=== PATIENT | male | born 1965 | race Caucasian/White ===

== ENCOUNTER 2018-12-23 20:54 | Inpatient (IN) ==
[2018-12-23] MEDS ORDERED: MORPHINE IV ONE (21:55)
[2018-12-23] MEDS ORDERED: NS 1,000 ML IV ONE (21:55)
[2018-12-23] MEDS ORDERED: ZOFRAN IV ONE (21:55)
--- NOTE | 2018-12-23 22:03 | PROVIDER DOCUMENTATION ---
HPI-General Adult - General Chief Complaint: Extremity Pain Stated Complaint: N/V, FEVER Time Seen by Provider: 12/23/18 21:50 Source: patient Allergies/Adverse Reactions: Patient Allergies Allergy/AdvReac Type Severity Reaction Status Date / Time No Known Allergies Allergy Verified 07/29/17 01:21 Home Medications: Home Medication List Medication Instructions Recorded Confirmed Last Taken Type Insulin Humulin 70/30 [Humulin 18 unit SQ BID 03/28/17 12/24/18 03/28/17 11:00 History 70/30] Promethazine [Phenergan] 1 - 2 tab PO Q6H PRN PRN #18 tab 07/29/17 12/24/18 Unknown Rx Amlodipine Besylate 10 mg PO DAILY 12/24/18 12/24/18 Unknown History - History of Present Illness -Gen Adult Nature of Presenting Problems: 53 YOM WITH PMH OF DM PRESENTS WITH L GREAT TOE SWELLING, PAIN, DRAINAGE, CHILLS, FEVER, NIGHT SWEATS. HE HAS HAD OSTEOMYELITIS PREVIOUSLY IN THE OTHER FOOT. Location of Pain/Injury: reports: feet (L) Pain Radiation: reports: no radiation Quality of Pain: reports: aching Severity: reports: severe Onset/Duration: reports: 1 week ago Timing: reports: still present Context/Activities at Onset: reports: none Modifying Factors: improves with: nothing Associated Symptoms: reports: fever/chills, muscle aches, nausea, vomiting, weakness Similar Symptoms Previously?: Yes Recently seen or treated by another doctor?: No Review of Systems - Adult - REVIEW OF SYSTEMS - ADULT Constitutional: reports: see HPI, chills, fever, night sweats Eyes: reports: no symptoms reported. denies: see HPI, discharge, dry eyes, decreased vision, blurred vision, double vision, eye pain, redness, other Ears, Nose, Mouth & Throat: reports: no symptoms reported. denies: see HPI, ear discharge, ear pain, hearing loss, tinnitus, epistaxis, sinus problem, nose pain, loose teeth, mouth/dental pain, mouth swelling, hoarseness, throat pain, throat swelling, other Cardiovascular: reports: no symptoms reported. denies: see HPI, chest pain, edema, heart murmur, irregular heart rate, orthopnea, palpitations, poor circulation, PND, syncope, other Respiratory: reports: no symptoms reported. denies: see HPI, chronic cough, cough, dyspnea on exertion, excessive sputum production, hemoptysis, pleurisy, shortness of breath, wheezing, other Gastrointestinal: reports: no symptoms reported. denies: see HPI, abdominal pain, hematemesis, constipation, diarrhea, difficulty swallowing, frequent heartburn, nausea, poor appetite, rectal bleeding, vomiting, other Genitourinary: reports: no symptoms reported. denies: see HPI, dysuria, discharge, frequency, flank pain, frequent UTI's, hematuria, hesitency, incontinence, urinary retention, urgency, other Musculoskeletal: reports: see HPI. denies: no symptoms reported, bone pain, back pain, frequent leg cramps, joint pain, joint swelling, muscle aches, muscle weakness, neck pain, other Integumentary: reports: see HPI, skin sores/ulcer. denies: no symptoms reporte d, hives, hair loss, itching, mole changes, nail changes, rash, skin thickening, other Neurological: reports: no symptoms reported. denies: see HPI, ataxia, dizziness/vertigo, headache/migraines, loss of balance, numbness, paresthesia, seizure, slurred speech, syncope, tremors, other Psychiatric: reports: no symptoms reported. denies: see HPI, anxiety, anti- depressant use, alcohol/drug dependence, depression, emotional problems, insomnia, panic attacks, suicidal thoughts, other Endocrine: reports: no symptoms reported. denies: see HPI, change in skin pigment, excessive sweating, goiter, cold intolerance, heat intolerance, increased hunger, increased thirst, polyuria, other Hematologic/Lymphatic: reports: no symptoms reported. denies: see HPI, blood clots, easy bruising, low blood count, lymphedema, prolonged bleeding, swollen lymph nodes, transfusions, other Allergic/Immunologic: reports: no symptoms reported. denies: see HPI, allergic reactions, allergic rhinitis, asthma, eczema, food allergy, frequent infections, hay fever, hives, positive PPD, urticaria, other Past History - Adult - PAST MEDICAL HISTORY-ADULT Review of Records: reports: Nursing Assessment Review, Social history reviewed & non-contributory. Major Childhood Illnesses: reports: denies history Cardiovascular: reports: denies history Respiratory: reports: denies history Gastrointestinal: reports: denies history Obstetrical/Gynecological: reports: denies history Genitourinary: reports: denies history Musculoskeletal: reports: denies history Neurological: reports: denies history Psychiatric: reports: denies history Endocrine/Immune: reports: Diabetes Other Conditions: reports: denies history - PRIOR SURGERIES/PROCEDURES Surgical/Procedure History: reports: appendectomy, cholecystectomy - IMMUNIZATION STATUS Childhood Immunizations: See Nurse Assessment Flu Vaccine: See Nurse Assessment - FAMILY HISTORY Family History: reviewed, not pertinent Physical Exam-General - PHYSICAL EXAM-ADULT Initial Vital Signs Reviewed: Yes - CONSTITUTIONAL General Appearance: appears well, alert, no apparent distress - EYES Eyes: PERRL/EOMI, pink conjunctivae - HEAD, EARS, NOSE, MOUTH & THROAT HENMT: normocephalic/atraumatic, moist mucous membranes, normal ENT inspection - NECK Neck: non-tender, full range of motion, supple - RESPIRATORY Respiratory: chest non-tender, lungs clear, normal breath sounds - CARDIOVASCULAR Cardiovascular: normal peripheral pulses, regular rate, rhythm, no edema, no gallop, no JVD, no murmur - GASTROINTESTINAL (ABDOMEN) Abdominal Exam: normal bowel sounds, non tender, soft - LYMPHATIC Lymphatic: no adenopathy - MUSCULOSKELETAL Back Exam: normal inspection, no CVA tenderness, no vertebral tenderness Extremity: swelling (L GREAT TOE), tenderness (L GREAT TOE) - SKIN Integumentary: swelling (L TOE), tenderness (L TOE), warm (L TOE) - NEUROLOGIC Neurologic: grossly normal - PSYCHIATRIC Psych/Mental Status: normal mood/affect, oriented x 3 Progress - PLAN OF CARE/RESULTS Progress/Plan/Lab Results: Vital Signs - 8 hr 12/23/18 20:58 Temperature 99.0 F Pulse Rate 108 H Respiratory Rate 18 Blood Pressure 147/75 O2 Sat by Pulse Oximetry 99 Orders Category Date Time Status Saline Loc NOW Care 12/23/18 21:54 Ordered FOOT COMPLETE LEFT [RAD] Stat Exams 12/23/18 21:57 Ordered BLOOD CULTURE [BLDCUL] Stat Lab 12/23/18 21:55 Uncollected COMPREHENSIVE METABOLIC PANEL [CHEM] Stat Lab 12/23/18 21:55 Uncollected LACTATE, PLASMA [CHEM] Stat Lab 12/23/18 21:55 Uncollected PROTIME WITH INR [COAG] Stat Lab 12/23/18 21:55 Uncollected PTT [COAG] Stat Lab 12/23/18 21:55 Uncollected WOUND CULTURE INC GRAM STAIN [RM] Stat Lab 12/23/18 21:55 Uncollected Morphine Med 12/23/18 21:55 Once 4 mg IV NOW ONE Ns 1000 ml IV Bolus X1 Med 12/23/18 21:55 Ordered 0.9% Sodium Chloride Inj [Ns] 1,000 ml IV 999 mls/hr Ondansetron [Zofran] Med 12/23/18 21:55 Once 4 mg IV NOW ONE Result Diagrams: 12/24/18 05:39 12/24/18 05:39 - XRAY 1 XRAY: Left XRAY Study: Foot Impression: Abnormal Departure - Departure Date of Disposition Decision: 12/24/18 Time of Disposition Decision: 00:43 DIAGNOSIS: Cellulitis, Sepsis Disposition: ADMITTED INPATIENT 09 Certified Medical Emergency: Emergent Condition: Stable - Critical Care Note This patient required my direct & personal management of CC.: No Attestation - Physician/ NUPUR Attestation Patient care was provided by Advanced Practice Provider:: Yes Advanced Practice Provider:: Merlene Lucas Advanced Practice Provider documentation review:: The Mid-level provider documentation, treatment plan and medical decision making was reviewed by the physician who agrees with all treatment and medical decision making by the MLP. The physician spent face to face time with patient:: No Advanced Practice Provider documentation review:: Supervising physician onsite a nd consulted in the evaluation and care of this patient. The physician did not have a face to face encounter with the patient.
[2018-12-23 23:01] LABS: ALBUMIN 4.1 g/dL (3.5-5.0); POTASSIUM 4.3 mmol/L (3.5-5.1); TOTAL BILIRUBIN 0.9 mg/dL (0.20-1.00)
[2018-12-23] MEDS ORDERED: VANCOMYCIN 1 GM/NS 1 GM/250 ML IVPB IV ONE (23:17)
[2018-12-23] MEDS ORDERED: ZOSYN 3.375 GM in NS 50 ML IV ONE (23:17)
[2018-12-23 23:40] LABS: INR 0.95; PROTIME 13.2 Seconds (11.0-16.0)
[2018-12-24 00:05] LABS: BASO# 0.03 X1000 (0.0-0.2); BASO% 0.2 % (0.0-0.8); EOS# 0.14 X1000 (0.0-0.7); EOS% 1.2 % (0.0-10.0); HEMATOCRIT 34.2 % (42.0-52.0); HEMOGLOBIN 11.7 g/dL (14.0-18.0); IMM GRAN# 0.02 X1000 (0.0-0.04); IMM GRAN% 0.2 % (0.0-0.5); LYMPH# 1.08 X1000 (1.2-3.4); LYMPH% 8.9 % (20.5-51.1); MCH 26.8 PG (27-31); MCHC 34.2 g/dL (33-37); MCV 78.4 FL (81-99); MONO# 0.85 X1000 (0.11-0.59); MPV 11.3 FL (7.4-10.4); NEUT# 9.97 X1000 (1.4-6.5); NEUT% 82.5 % (42.2-75.2); PLT 399 X1000 (130-400); RBC 4.36 XMIL (4.7-6.1); RDW 12.3 % (11.5-14.5); WBC 12.09 X1000 (4.8-10.8)
[2018-12-24] MEDS ORDERED: NS 1,000 ML IV ONE ×2 (00:44→00:45)
[2018-12-24] MEDS ORDERED: VANCOMYCIN IV PER PHARMACY MISC SCH (01:34)
[2018-12-24] MEDS: MORPHINE IV PRN ×3 (01:44→17:24)
[2018-12-24] MEDS: ZOFRAN IV PRN ×3 (01:45→17:25)
[2018-12-24] MEDS ORDERED: VANCOMYCIN 500 MG/NS 500 MG/100 ML IVPB IV ONE (03:00)
[2018-12-24 06:09] LABS: BASO# 0.03 X1000 (0.0-0.2); BASO% 0.3 % (0.0-0.8); EOS# 0.06 X1000 (0.0-0.7); EOS% 0.5 % (0.0-10.0); HEMATOCRIT 30.2 % (42.0-52.0); HEMOGLOBIN 9.7 g/dL (14.0-18.0); IMM GRAN# 0.02 X1000 (0.0-0.04); IMM GRAN% 0.2 % (0.0-0.5); LYMPH# 1.63 X1000 (1.2-3.4); LYMPH% 13.7 % (20.5-51.1); MCH 25.7 PG (27-31); MCHC 32.1 g/dL (33-37); MCV 80.1 FL (81-99); MONO# 1.38 X1000 (0.11-0.59); MONO% 11.6 % (1.7-9.3); MPV 10.5 FL (7.4-10.4); NEUT# 8.76 X1000 (1.4-6.5); NEUT% 73.7 % (42.2-75.2); PLT 357 X1000 (130-400); RBC 3.77 XMIL (4.7-6.1); RDW 12.4 % (11.5-14.5); WBC 11.88 X1000 (4.8-10.8)
[2018-12-24] MEDS: ZOSYN 3.375 GM in NS 50 ML IV SCH ×5 (06:09→23:20)
[2018-12-24 06:44] LABS: ALBUMIN 3.2 g/dL (3.5-5.0); CALCIUM 8.1 mg/dL (8.8-10.2); CREATININE 1.7 mg/dL (0.7-1.2); TOTAL BILIRUBIN 0.5 mg/dL (0.20-1.00); TOTAL PROTEIN 6.6 g/dL (6.3-8.3)
--- NOTE | 2018-12-24 08:12 | Diag Imaging Result Doc PS360 ---
EXAM: FOOT COMPLETE LEFT - 12/23/2018 HISTORY: swelling, redness, tenderness, fever TECHNIQUE: Left foot three views COMPARISON: None. FINDINGS: There is soft tissue swelling at the great toe. There are no erosive or destructive changes identified at the great toe or first metatarsal. There are erosive changes at the terminal torrey of the distal phalanges of the second and third toes, which are nonspecific age. There is mild chronic appearing deformity of the distal head of the fifth metatarsal. There is no acute fracture or dislocation identified. There is no opaque foreign body identified. IMPRESSION: Soft tissue at swelling great toe. No visible acute bony abnormality at the great toe or first metatarsal. Please note that early osteomyelitis can be radiographically occult. Erosive changes at the terminal torrey of the distal phalanges of second and third toes, which are of nonspecific age. Correlation with clinical history and evaluation is recommended. Mild chronic appearing deformity of distal head of fifth metatarsal. Electronically signed by Suman Clarke 12/24/2018 8:10 AM
[2018-12-24 09:33] LABS: HEMOGLOBIN A1C 10.2 % (4.8-6.0)
[2018-12-24] MEDS ORDERED: TYLENOL PO PRN (11:14)
[2018-12-24] MEDS: NORVASC PO SCH (11:15)
[2018-12-24] MEDS: HUMULIN R (PARKWAY) SUBQ SCH ×3 (11:17→22:23)
--- NOTE | 2018-12-24 12:18 | HISTORY AND PHYSICAL ---
PRIMARY CARE PHYSICIAN: Dr. Rasmussen. CHIEF COMPLAINT: Left foot pain and edema. HISTORY OF PRESENT ILLNESS: Mr. Vegas is a 53-year-old male with a past medical history of diabetes, Sunflower syndrome, kidney stones, hypertension and cellulitis. The patient states that about a week ago he noticed a sore to the bottom of his left great toe, the patient has been treating this with topical antibiotic cream. The patient states he thought that it was getting better, but it suddenly started becoming more edematous. He started noticing some erythema and some drainage that looked purulent, all this started over the past couple days. The patient has also been having some fever, chills and night sweats. The patient has been working out of town in [place]. 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 Upon inspection of the toe, there is a lot of erythema and edema to the left great toe, it is noted to have some discoloration noted at the skin that appears yellow. There is a open wound noted to the bottom of the toe region, it does have some purulent drainage coming out of the toe. The patient states he has also been having some nausea and vomiting. The patient did have some vomiting while in the room, there was not much stomach contents in the vomit, but there was some white foam, which appears to be more like dry heaves. The patient denies any blood in his vomit. Denies any chest or shortness of breath. Denies any dysuria or hematuria. Denies any constipation or any blood in the stool. He states he has had a couple episodes of diarrhea, but this has just started. LABORATORY FINDINGS: Show a white blood cell count of 12.09, hemoglobin of 11.7, hematocrit 34.2. Sodium is 134, chloride is 93, BUN is 25, creatinine is 2, estimated GFR is 35. Glucose is 228. Plasma lactate is 3.2. X-ray of foot shows soft tissue swelling at the great toe. 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 FAMILY HISTORY: Father from a heart attack, he was also an alcoholic. Mother who was a heavy smoker of COPD. SOCIAL HISTORY: The patient is . He lives in [place]. 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 He denies any smoking, alcohol or illicit drug abuse. ALLERGIES: No known drug allergies. MEDICATIONS: 1. Insulin 70/30, 18 units subcu b.i.d. 2. Phenergan 25 mg 1 to 2 tablets p.o. q.6 hours p.r.n. nausea and vomiting. 3. Amlodipine besylate 10 mg p.o. daily. LABS AND DIAGNOSTICS: White blood cell count is 12.09, red blood cell count is 4.36, hemoglobin is 11.7, hematocrit is 34.2, MCV is 78.4, MCH 26.8, MCHC is 34.2, RDW is 12.3, platelet count is 399,000. PT is 13.2, INR is 0.95, PTT is 36. Sodium is 134, potassium is 4.3, chloride is 93, carbon dioxide is 26, anion gap is 16, BUN is 25, creatinine is 2. Estimated GFR is 35. Glucose is 228, calcium is 9, total bilirubin is 0.9, AST is 18, ALT is 10, alkaline phosphatase is 95. Plasma lactate is 3.2. X-ray of the left foot shows soft tissue swelling of the great toe. No visible acute bony abnormality at the great toe or 1st metatarsal. REVIEW OF SYSTEMS: A 10 point review of systems has been obtained and all are negative except what is stated above in the HPI. PHYSICAL EXAMINATION: VITAL SIGNS: Temperature 97.4 degrees, pulse rate 67, respiratory rate 18, blood pressure 121/62, O2 saturation is 100% on room air, weight is 166 pounds, height is 5 feet 11 inches. GENERAL: This is a 53-year-old male. He is lying in the hospital bed. He is in no acute distress. He is well nourished and well developed. HEENT: Atraumatic, normocephalic. Pupils are equal, round and reactive to light. Sclerae are anicteric. Mucous membranes are moist. NECK: Supple. No lymphadenopathy. Trachea is midline. No JVD. No thyromegaly. No bruits. CARDIOVASCULAR: Regular rate and rhythm. No murmurs, gallops or rubs appreciated. RESPIRATORY: Lung sounds are clear with equal chest excursion. Respirations are nonlabored with no accessory muscle usage. ABDOMEN: Soft, nontender, nondistended. Bowel sounds are present x4. NEUROLOGIC: Cranial nerves II-XII intact. The patient is awake, alert and oriented, able to follow all commands appropriately. MUSCULOSKELETAL: Full strength noted. No abnormalities of gait. No deformities. EXTREMITIES: There is a large amount of edema and erythema noted to the left great toe. DP and PT pulses are present and palpable. Left foot is very tender to touch. There are no abnormalities noted to the right foot. SKIN: Warm and dry. There is an open wound noted to the posterior surface of the left great toe, it is draining purulent drainage. The left great toe is very edematous and has a large amount of erythema noted to the base. The skin is discolored in appearance, it has a yellowish tint noted. Afebrile at this time. There is no diaphoresis noted at this time. ASSESSMENT AND PLAN: 1. Cellulitis to the left great toe. We have placed this patient on the medical floor. We have started him on IV fluid hydration of normal saline at 100 mL/h. They did recheck a lactate on him, and his lactate did come down to 1.2. They did recheck his white blood cell count this morning, and it has come down to 11.88. We have started him on IV antibiotics of vancomycin and Zosyn. We will provide him with Tylenol as needed for fever, and Zofran as needed for nausea and vomiting. 2. Acute kidney injury, this is possibly related to his infection. The patient only has one kidney noted, he had his left kidney removed. When looking back at the lab values from the past, looks like he had a creatinine of 1.1 a year ago. We are providing him with IV fluid hydration. His creatinine has come down to 1.7. His GFR has increased to 43, a year ago his GFR was 40, this may be his normal range. We are going to repeat labs in the morning. 3. Diabetes. I have restarted his home medications for diabetes, we are going to be checking his fingersticks before meals and at bedtime. His blood sugar this morning was low; however, he did not eat dinner last night. I did a hemoglobin A1c on this patient, his A1c is 10.2. I counseled him on trying to follow his diabetic diet when at home. The patient works out of town and states it is hard to follow this diet while on the road. I talked with him about getting his blood sugar to less than 150 range, and this would help with wound healing. 4. Hypertension. I have restarted his home medications for hypertension. 5. Anemia. I suspect this is anemia of chronic disease. We are going to repeat his labs in the morning. I will add some iron studies on there to check for iron deficiency anemia. We will admit this patient to the medical floor. We have started him on IV fluid hydration. We placed him on IV antibiotics. We are going to provide him with a diabetic diet. We are going to give him his home insulin doses and check his blood sugar before meals and at bedtime. We will also provide him with sliding scale insulin if needed. We will recheck all the labs in the morning, provide him with nausea medicine for his nausea and Tylenol for fever. The patient has not had any fevers in the hospital. We are going to have Wound Care come take a look at his wound on his left great toe. All other treatment pending hospital course and lab data. Dictated by NAVDEEP Hester for Josemanuel Guzman MD cc: MD Dr. Grady Espinal
--- NOTE | 2018-12-24 13:29 | Diag Imaging Result Doc PS360 ---
EXAM: MRI LOW EXTREMITY W/O CON-LEFT - 12/24/2018 HISTORY: L GREAT TOE INFECTION TECHNIQUE: MRI left great toe without contrast. T1-weighted spin-echo images). Images are obtained in multiple injections. No contrast administered per request the referring provider. COMPARISON: 12/23/2018 left foot radiographs FINDINGS: There is relatively generalized subcutaneous edema at the great toe. This is most prominent medially. There is extension of edema into the dorsal subcutaneous tissues of the nearby forefoot. There is some generalized bone marrow edema in the distal phalanx of the great toe. There is mild generalized bone marrow edema in the proximal phalanx of great toe. The bone marrow edema is most conspicuous on the inversion apparent images, and is less conspicuous on the T1-weighted images. When correlated with the recent radiographs, there are no discrete erosions identified. There is a small amount of fluid noted in multiple metatarsal phalangeal joint. IMPRESSION: Some generalized bone marrow edema in the distal phalanx of the great toe. Mild generalized bone marrow edema in the proximal phalanx of the great toe. No discrete erosions. Early osteomyelitis of the great toe, particularly at the distal phalanx, cannot be excluded. Electronically signed by Suman Clarke 12/24/2018 1:27 PM
--- NOTE | 2018-12-24 13:45 | HISTORY AND PHYSICAL ---
ADDENDUM: I saw the patient and discussed his condition in detail with the nurse practitioner, Neda Arevalo. I fully agree with her assessment and plan. The patient is a 53-year-old diabetic gentleman who has left great toe swelling with diabetic ulcer and cellulitis. He does have history of osteomyelitis in the past, although current foot x-rays did not show any obvious osteomyelitis, although there could be occult osteomyelitis present there. We are going to continue with IV vancomycin along with Zosyn and treat his insulin with regular insulin as per sliding scale. We will keep his amlodipine 10 mg daily for his hypertension and provide him supportive care. Further recommendations will be given as per hospital course. cc: Josemanuel Guzman MD
[2018-12-24] MEDS: HUMULIN 70/30 (PARKWAY) SUBQ SCH (17:15)
[2018-12-25] MEDS ORDERED: VANCOMYCIN 1,200 MG in NS 250 ML IV SCH (01:00)
[2018-12-25 06:37] LABS: BASO# 0.05 X1000 (0.0-0.2); BASO% 0.6 % (0.0-0.8); EOS# 0.45 X1000 (0.0-0.7); EOS% 5.4 % (0.0-10.0); HEMATOCRIT 28.6 % (42.0-52.0); HEMOGLOBIN 9.3 g/dL (14.0-18.0); IMM GRAN# 0.01 X1000 (0.0-0.04); IMM GRAN% 0.1 % (0.0-0.5); LYMPH# 0.99 X1000 (1.2-3.4); LYMPH% 11.9 % (20.5-51.1); MCH 26.4 PG (27-31); MCHC 32.5 g/dL (33-37); MCV 81.3 FL (81-99); MONO# 0.67 X1000 (0.11-0.59); MONO% 8.1 % (1.7-9.3); MPV 10.9 FL (7.4-10.4); NEUT# 6.15 X1000 (1.4-6.5); NEUT% 73.9 % (42.2-75.2); PLT 325 X1000 (130-400); RBC 3.52 XMIL (4.7-6.1); RDW 12.5 % (11.5-14.5); WBC 8.32 X1000 (4.8-10.8)
[2018-12-25] MEDS: ZOSYN 3.375 GM in NS 50 ML IV SCH ×3 (06:39→21:57)
[2018-12-25] MEDS: PRILOSEC PO SCH (06:39)
[2018-12-25] MEDS: HUMULIN R (PARKWAY) SUBQ SCH ×4 (06:43→21:58)
[2018-12-25 07:07] LABS: CALCIUM 7.9 mg/dL (8.8-10.2); CREATININE 1.4 mg/dL (0.7-1.2); MAGNESIUM 1.7 mg/dL (1.5-2.7); POTASSIUM 4.7 mmol/L (3.5-5.1)
[2018-12-25 07:27] LABS: FREE T4 1.35 ng/dL (0.93-1.70); TSH 1.46 uIUmL (0.27-4.20)
[2018-12-25] MEDS: HUMULIN 70/30 (PARKWAY) SUBQ SCH ×2 (10:01→17:43)
[2018-12-25] MEDS: NORVASC PO SCH ×2 (10:02→10:03)
--- NOTE | 2018-12-25 12:41 | PROGRESS NOTE ---
DATE: 12/25/2018 SUBJECTIVE: The patient denies having any acute complaints this morning and feels better. OBJECTIVE: Vital Signs: Temperature 98.1 degrees, pulse 66 per minute, respiratory rate 20 per minute, blood pressure 108/59, pulse oximetry 98% on room air. General: The patient is alert and oriented x3. He does not appear to be in any acute distress. Cardiovascular System: First and second heart sounds are audible, without any murmurs or gallops. Respiratory System: Bilateral lung air entry is good without any rales or rhonchi. Gastrointestinal system: The abdomen is benign. Musculoskeletal System: No deformities are present. Left great toe is swollen, with cellulitis and slight ulceration. IMPRESSION: 1. Type 2 diabetes mellitus, with cellulitis of the left great toe. 2. Acute kidney injury. 3. Hypertension. 4. Anemia of chronic disease. PLAN: We will continue with IV antibiotics including vancomycin and Zosyn. Surgical consultation with Dr. Santoyo has been obtained, who has seen this patient and will assist us in taking care of his cellulitis of the great toe. We will also check him for possible osteomyelitis and treat him accordingly. We will continue with IV fluids along with treating his hypertension and diabetes. Currently, he is getting Regular insulin subcutaneously as per protocol. His anemia is stable, and creatinine has improved from 2.0 to 1.4. I believe there could be some chronic kidney disease secondary to diabetes as well, but we will monitor his creatinine levels. The rest of the recommendations will be given as per hospital course. cc: Josemanuel Guzman MD
[2018-12-25] MEDS ORDERED: NS 50 ML ONE (13:18)
--- NOTE | 2018-12-25 14:04 | GENERAL SURGERY CONSULTATION ---
DATE: 12/25/2018 REQUESTING PHYSICIAN: Dr. Guzman. REASON FOR CONSULT: Consult concerning left great toe infection. HISTORY OF PRESENT ILLNESS: A 53-year-old male, with a history of diabetes, fam syndrome, kidney stones, hypertension, and cellulitis who, a week ago, noticed a sore at the bottom of his left great toe that has progressively gotten worse. He has been seen in the emergency department, had imaging that suggested the possibility of early osteomyelitis but nothing definitive. He has been evaluated by Wound Care and started on daily wound dressings. He has been started on IV antibiotics and admitted to the hospital. I was asked to weigh an opinion. He is without any other concerns at this point. PAST MEDICAL HISTORY: The past medical history includes diabetes mellitus type 2, fam syndrome, kidney stones, hypertension, and history of cellulitis. PAST SURGICAL HISTORY: The past surgical history includes nephrectomy, appendectomy, and pituitary gland tumor removed. FAMILY HISTORY: Positive for heart attack. SOCIAL HISTORY: Lives in [place]. Denies smoking, alcohol, or illicit drugs. ALLERGIES: None. HOME MEDICATIONS: Reviewed. REVIEW OF SYSTEMS: A full 14 systems reviewed and negative except as specified in HPI. PHYSICAL EXAMINATION: Vitals: The patient is currently afebrile. His vital signs are stable. General: No acute distress. Alert, interactive, male who looks stated age. HEENT: Normocephalic, atraumatic. Pupils equal, round, and reactive to light. Mucous membranes area moist. Oropharynx benign. Neck: Supple. Trachea midline. Cardiovascular: Regular rate and rhythm. Lungs: Grossly clear. Abdomen: Soft, nontender, nondistended. Extremities: Wound to left great toe noted. It is edematous, erythematous, and has some fluctuance. No active drainage. There is a wound that seems to track some into the foot. Vascular: All extremities perfused. Neurologic: Grossly intact. Skin: Wound as noted above. IMAGING: As noted above. LABORATORY: White blood cell count is 8, which is down from admission. Remainder of labs reviewed. ASSESSMENT AND PLAN: A 53-year-old gentleman, with diabetic foot ulcer, left great toe. Diabetic foot ulcer, left great toe. At this time, there is high degree of suspicion that this is osteomyelitis. We will need to get a lower extremity arterial study to evaluate his leg better for perfusion, but I have a high degree of suspicion he will require an amputation. We will keep him on antibiotics and local wound care for now. cc: Maxx Santoyo MD
[2018-12-25] MEDS: ZOFRAN IV PRN ×2 (17:45→22:35)
[2018-12-25] MEDS: MORPHINE IV PRN ×2 (17:45→22:34)
[2018-12-25] MEDS: VANCOMYCIN 1,600 MG in NS 250 ML IV SCH (22:34)
[2018-12-26] MEDS: ZOSYN 3.375 GM in NS 50 ML IV SCH ×5 (03:38→21:44)
[2018-12-26] MEDS: PRILOSEC PO SCH (06:09)
[2018-12-26] MEDS: HUMULIN R (PARKWAY) SUBQ SCH ×4 (06:34→21:44)
[2018-12-26 06:47] LABS: BASO# 0.05 X1000 (0.0-0.2); BASO% 0.9 % (0.0-0.8); EOS# 0.38 X1000 (0.0-0.7); EOS% 6.7 % (0.0-10.0); HEMATOCRIT 29.7 % (42.0-52.0); HEMOGLOBIN 9.5 g/dL (14.0-18.0); IMM GRAN# 0.01 X1000 (0.0-0.04); IMM GRAN% 0.2 % (0.0-0.5); LYMPH# 1.43 X1000 (1.2-3.4); LYMPH% 25.2 % (20.5-51.1); MCH 25.9 PG (27-31); MCV 80.9 FL (81-99); MONO# 0.56 X1000 (0.11-0.59); MONO% 9.9 % (1.7-9.3); MPV 10.4 FL (7.4-10.4); NEUT# 3.25 X1000 (1.4-6.5); NEUT% 57.1 % (42.2-75.2); PLT 334 X1000 (130-400); RBC 3.67 XMIL (4.7-6.1); RDW 12.4 % (11.5-14.5); WBC 5.68 X1000 (4.8-10.8)
--- NOTE | 2018-12-26 06:55 | GENERAL SURGERY PROGRESS NOTE ---
DATE: 12/26/2018 SUBJECTIVE: Patient doing okay. OBJECTIVE: Vital Signs: The patient is currently afebrile. His vital signs are stable. General: No acute distress. HEENT: Normocephalic, atraumatic. Pupils equal, round, reactive to light. Mucous membranes moist. Oropharynx benign. Neck: Supple. Trachea midline. Cardiovascular: Regular rate and rhythm. Lungs: Grossly clear. Abdomen: Soft, nontender, nondistended. Extremities: Left foot wound may be slightly better with slightly less erythema, but overall looks about the same. Vascular: All extremities are perfused. Neurologic: Grossly intact. Skin: Wound as noted above. LABORATORY DATA: None this morning as of yet. ASSESSMENT AND PLAN: A 53-year-old with diabetic foot ulcer. Diabetic foot ulcer. At this time, will continue intravenous antibiotics. He does have a lower extremity arterial study pending, so will follow up with the perfusion. It maybe looks slightly better overall, but I think it is roughly about the same, so will continue to monitor him. cc: Maxx Santoyo MD
[2018-12-26 06:59] LABS: CALCIUM 8.6 mg/dL (8.8-10.2); CREATININE 1.4 mg/dL (0.7-1.2); POTASSIUM 4.6 mmol/L (3.5-5.1)
[2018-12-26] MEDS: HUMULIN 70/30 (PARKWAY) SUBQ SCH ×2 (09:02→17:56)
[2018-12-26] MEDS: NORVASC PO SCH (09:04)
[2018-12-26] MEDS ORDERED: NS 1,000 ML ONE (18:24)
--- NOTE | 2018-12-26 18:42 | PROGRESS NOTE ---
DATE: 12/26/2018 SUBJECTIVE: Patient reports feeling fine this morning. No fever or chills. OBJECTIVE: Vital Signs: Temperature 98.2, heart rate 56, respiratory rate 30 blood pressure 119/66, O2 saturation 99% on room air. General: This is a 53-year-old male, lying in bed, in no acute distress. Cardiovascular: S1, S2 heard. No murmurs, gallops, or rubs. Regular rate and rhythm. Respiratory: Clear bilaterally to auscultation. No work of breathing or using accessory muscles. Abdomen: Soft,nontender to palpation. Bowel sounds present. No organomegaly. Extremities: No clubbing or cyanosis or edema. Left great toe is swollen covered by dressing, the whole foot. Neurological: Patient alert oriented x3. Moves 4 extremities. LABORATORY DATA: Reviewed. ASSESSMENT AND PLAN: 1. Cellulitis of the left great toe. The patient is receiving broad-spectrum antibiotics. We are basically waiting for arterially studies to determine if this patient is a candidate for surgery or not. In any case, we will continue to monitor this patient closely. 2. Acute kidney injury, resolved. 3. Hypertension. Blood pressure is under control. We will continue with same management. 4. Anemia of chronic disease. Stable. We will continue to check CBC. DISPOSITION: At this point, we will wait for results of arterial study to guide further treatment from neurological standpoint. cc: Morteza Talley MD
[2018-12-26] MEDS: VANCOMYCIN 1,600 MG in NS 250 ML IV SCH (22:36)
[2018-12-27] MEDS: MORPHINE IV PRN (00:35)
[2018-12-27] MEDS: ZOFRAN IV PRN (00:36)
[2018-12-27] MEDS: ZOSYN 3.375 GM in NS 50 ML IV SCH ×2 (04:26→09:05)
[2018-12-27] MEDS: PRILOSEC PO SCH (06:01)
[2018-12-27] MEDS: HUMULIN R (PARKWAY) SUBQ SCH ×4 (06:58→22:57)
--- NOTE | 2018-12-27 07:39 | GENERAL SURGERY PROGRESS NOTE ---
DATE: 12/27/2018 SUBJECTIVE: The patient seems to be doing okay. Wound overall looks better. OBJECTIVE: Vital Signs: The patient is currently afebrile. His vital signs are stable. General: No acute distress. HEENT: Normocephalic, atraumatic. Pupils equal, round, reactive to light. Mucous membranes moist. Oropharynx benign. Neck: Supple. Trachea midline. Cardiovascular: Regular rate and rhythm. Lungs: Grossly clear. Abdomen: Soft, nontender, nondistended. Extremities: Left foot seems to be improving. Erythema is better. Neurologic: Grossly intact. Skin: Wound as noted above. Vascular: All extremities perfused. LABORATORY DATA: None this morning as of yet. Reviewed labs from yesterday. White blood cell count is 5. ASSESSMENT AND PLAN: A 53-year-old gentleman with diabetic foot ulcer. Diabetic foot ulcer. At this time, seems to be healing. He still has a lower extremity arterial study pending. Hopefully, that will be done here soon. Will follow up with the results. May consider switching him over to something like oral Bactrim, and discharging him soon. cc: Maxx Santoyo MD
[2018-12-27] MEDS: NORVASC PO SCH (09:05)
[2018-12-27] MEDS: HUMULIN 70/30 (PARKWAY) SUBQ SCH ×2 (09:05→17:10)
--- NOTE | 2018-12-27 11:31 | PROGRESS NOTE ---
DATE: 12/27/2018 SUBJECTIVE: Patient reports feeling fine. Mild pain in the left foot, but no fever or chills reported. OBJECTIVE: Vital Signs: Temperature 98.3 degrees, heart rate 56, respiratory rate 18, blood pressure 141/75, O2 saturation 98% on room air. On general examination, this is a 53-year-old male, lying in bed, in no acute distress. Cardiovascular: S1, S2 heard. No murmurs, gallops, or rubs. Regular rate and rhythm. Respiratory exam clear bilaterally to auscultation. No work of breathing or using accessory muscles. Abdomen is soft, nontender to palpation. Bowel sounds present. No organomegaly. Extremities: No clubbing, cyanosis, or edema. There is a left great toe swollen, covered by dressing. Neurological: Patient is alert and oriented x3. Moves 4 extremities. LABORATORY DATA: There are no labs from today. DIAGNOSTIC STUDIES: 1. Cellulitis of the left great toe. That is reason why this patient was admitted to the hospital. Actually, the MRI of the great toe suggests early osteomyelitis on the great toe, particularly the distal phalanx. In any case, Dr. Santoyo from General Surgery has been consulted. There was an arterial Doppler of bilateral legs ordered on Thursday that has not been done yet. We are still waiting for the examiner to see if there is any surgical approach required for this patient or not. In any case, considering how his wounds looks, I prefer to continue with IV antibiotics. By now, the wound culture showed gram-positive cocci. So, at this point, I am going to stop Zosyn and continue with vancomycin. Depending upon what the arterial study shows, I think this patient can be discharged soon. At this point, we will continue same management. 2. Acute kidney injury. That condition is completely resolved. 3. Hypertension. Blood pressure is stable, and blood pressure ranged between 130s and 140. We will continue to monitor. 4. Anemia of chronic disease. Hemoglobin has not been checked today but was 9.5 yesterday. We will continue to monitor. DISPOSITION: As we mentioned before, awaiting results of arterial studies and we will go from there. I talked with Dr. Santoyo and he thinks he will need IV antibiotics for a prolonged period of time. cc: MD GONZALO Wang
[2018-12-27] MEDS: VANCOMYCIN 1,600 MG in NS 250 ML IV SCH (22:57)
[2018-12-28] MEDS: PRILOSEC PO SCH ×2 (05:51→06:16)
[2018-12-28] MEDS: HUMULIN R (PARKWAY) SUBQ SCH ×4 (06:16→22:07)
[2018-12-28 07:21] LABS: AGAP 8; BUN 15 mg/dL (8-22); CALCIUM 8.6 mg/dL (8.8-10.2); CHLORIDE 99 mmol/L (98-107); COSMO 279; CREATININE 1.2 mg/dL (0.7-1.2); ESTIMATED GFR > 60; GLUCOSE 202 mg/dL (70-104); POTASSIUM 4.4 mmol/L (3.5-5.1); SODIUM 136 mmol/L (136-145); TCO2 29 mmol/L (25-35)
[2018-12-28 07:24] LABS: BASO# 0.07 X1000 (0.0-0.2); BASO% 1.1 % (0.0-0.8); EOS# 0.35 X1000 (0.0-0.7); EOS% 5.4 % (0.0-10.0); HEMATOCRIT 32.1 % (42.0-52.0); HEMOGLOBIN 10.5 g/dL (14.0-18.0); IMM GRAN# 0.02 X1000 (0.0-0.04); IMM GRAN% 0.3 % (0.0-0.5); LYMPH% 22.9 % (20.5-51.1); MCH 26.3 PG (27-31); MCHC 32.7 g/dL (33-37); MCV 80.3 FL (81-99); MONO# 0.43 X1000 (0.11-0.59); MONO% 6.6 % (1.7-9.3); MPV 10.4 FL (7.4-10.4); NEUT# 4.17 X1000 (1.4-6.5); NEUT% 63.7 % (42.2-75.2); PLT 408 X1000 (130-400); RDW 12.3 % (11.5-14.5); WBC 6.54 X1000 (4.8-10.8)
[2018-12-28] MEDS: NORVASC PO SCH (08:20)
[2018-12-28] MEDS: HUMULIN 70/30 (PARKWAY) SUBQ SCH ×2 (08:28→16:19)
[2018-12-28 10:11] LABS: EOS 2 % (1-10); LYMPHS 20 % (21-51); MONO 6 % (1-9); SEGS 72 % (42-75)
[2018-12-28] MEDS: MORPHINE IV PRN (22:07)
[2018-12-28] MEDS: VANCOMYCIN 1,600 MG in NS 250 ML IV SCH (22:08)
--- NOTE | 2018-12-28 23:29 | PROGRESS NOTE ---
DATE: 12/28/2018 SUBJECTIVE: The patient denies any new complaints, fevers or chills. Denies any new rashes anywhere. PHYSICAL EXAMINATION: Vital signs reviewed. He is awake, alert. He is in no current respiratory distress. Blood pressure is stable. He is afebrile.General: The patient is in no distress, pleasant to talk with, lying flat in the bed. HEENT: Normocephalic. Neck supple. Cardiovascular: Regular rate. Chest clear and nonlabored. Abdomen soft, nondistended. Extremities: Moves all extremities with the exception of the left lower extremity, where he has an ulcerated lesion on the fat pad. ASSESSMENT: 1. Acute kidney injury. 2. Hypertension. 3. Cellulitis, left great toe. PLAN: We will continue to treat the patient for osteomyelitis. He has a bone scan pending. cc: Adan Faustin MD
--- NOTE | 2018-12-29 05:51 | GENERAL SURGERY PROGRESS NOTE ---
DATE: 12/29/2018 SUBJECTIVE: Patient seems to be doing okay. OBJECTIVE: Vital Signs: Patient is currently afebrile. His vital signs are stable. General: No acute distress. HEENT: Normocephalic, atraumatic. Pupils equal, round, reactive to light. Mucous membranes moist. Oropharynx benign. Neck: Supple. Trachea midline. Cardiovascular: Regular rate and rhythm. Lungs: Grossly clear. Abdomen: Soft, nontender, nondistended. Extremities: Wound to left foot and left great toe appears to be improving overall. Vascular: All extremities perfused. Neurologic: Grossly intact. Skin: As noted above. LABORATORY: Reviewed from yesterday. White blood cell count 6. Remainder of labs reviewed. ASSESSMENT AND PLAN: A 53-year-old with diabetic foot ulcer, left great toe. Diabetic foot ulcer. At this time, seems to be healing and the official report for his lower extremity arterial study is pending but, per discussion with soil technician, it seems to be enough for healing processes. At this point, I think we can keep him on antibiotics and avoid an amputation. We will defer to the hospitalist as to when to transition him off of IV antibiotics but, again, the wound is improving. cc: Maxx Santoyo MD
[2018-12-29] MEDS: PRILOSEC PO SCH (06:40)
[2018-12-29] MEDS: HUMULIN R (PARKWAY) SUBQ SCH ×4 (06:41→22:28)
[2018-12-29 06:48] LABS: BASO# 0.06 X1000 (0.0-0.2); BASO% 0.7 % (0.0-0.8); EOS# 0.43 X1000 (0.0-0.7); EOS% 5.3 % (0.0-10.0); HEMATOCRIT 33.2 % (42.0-52.0); HEMOGLOBIN 10.6 g/dL (14.0-18.0); IMM GRAN# 0.02 X1000 (0.0-0.04); IMM GRAN% 0.2 % (0.0-0.5); LYMPH# 1.88 X1000 (1.2-3.4); LYMPH% 23.4 % (20.5-51.1); MCH 25.7 PG (27-31); MCHC 31.9 g/dL (33-37); MCV 80.6 FL (81-99); MONO# 0.69 X1000 (0.11-0.59); MONO% 8.6 % (1.7-9.3); NEUT# 4.96 X1000 (1.4-6.5); NEUT% 61.8 % (42.2-75.2); PLT 408 X1000 (130-400); RBC 4.12 XMIL (4.7-6.1); RDW 12.3 % (11.5-14.5); WBC 8.04 X1000 (4.8-10.8)
[2018-12-29 07:02] LABS: AGAP 9; BUN 18 mg/dL (8-22); CALCIUM 8.5 mg/dL (8.8-10.2); CHLORIDE 102 mmol/L (98-107); COSMO 286; CREATININE 1.2 mg/dL (0.7-1.2); ESTIMATED GFR > 60; GLUCOSE 213 mg/dL (70-104); POTASSIUM 4.9 mmol/L (3.5-5.1); SODIUM 139 mmol/L (136-145); TCO2 27 mmol/L (25-35)
[2018-12-29] MEDS: HUMULIN 70/30 (PARKWAY) SUBQ SCH ×2 (07:55→17:16)
[2018-12-29] MEDS: NORVASC PO SCH ×2 (07:55→10:40)
[2018-12-29 12:02] LABS: INR 0.97; PROTIME 13.4 Seconds (11.0-16.0)
[2018-12-29] MEDS: VANCOMYCIN 1,600 MG in NS 250 ML IV SCH (22:28)
--- NOTE | 2018-12-29 22:30 | PROGRESS NOTE ---
DATE: 12/29/2018 SUBJECTIVE: The patient currently has no complaints. He notes that his toe is less swollen, less tender, less erythematous than it was on admission. OBJECTIVE: Temperature 98.3 degrees, pulse 56, respiratory rate 18, BP 159/78.General: The patient is awake, very pleasant, in no distress, lying in bed. HEENT: Normocephalic. Neck: Supple. Cardiovascular: Regular rate. Chest: Clear. Abdomen: Soft. Extremities: Moves all extremities. Skin: His left great toe is still swollen. Currently it is improving. It is less erythematous. He has no drainage. ASSESSMENT: 1. Osteomyelitis with methicillin-resistant Staphylococcus aureus of left great toe. Continues to improve. 2. Acute kidney injury. 3. Hypertension. 4. Anemia of chronic disease. PLAN: We are going to discuss with Dr. Fuentes antibiotic choice. Oddly enough, Mr. Vegas said he would rather have his toe removed than be on antibiotics for a lengthy period of time. I discussed with him that it is a very poor choice, and he certainly could completely heal with antibiotics. cc: Adan Faustin MD
[2018-12-30] MEDS: PRILOSEC PO SCH (06:20)
[2018-12-30] MEDS: HUMULIN R (PARKWAY) SUBQ SCH ×3 (06:20→17:19)
[2018-12-30 06:25] LABS: BASO# 0.06 X1000 (0.0-0.2); BASO% 0.6 % (0.0-0.8); EOS# 0.34 X1000 (0.0-0.7); EOS% 3.3 % (0.0-10.0); HEMATOCRIT 32.5 % (42.0-52.0); HEMOGLOBIN 10.5 g/dL (14.0-18.0); IMM GRAN# 0.02 X1000 (0.0-0.04); IMM GRAN% 0.2 % (0.0-0.5); LYMPH# 1.87 X1000 (1.2-3.4); LYMPH% 18.2 % (20.5-51.1); MCHC 32.3 g/dL (33-37); MCV 80.4 FL (81-99); MONO# 0.58 X1000 (0.11-0.59); MONO% 5.6 % (1.7-9.3); MPV 9.9 FL (7.4-10.4); NEUT# 7.42 X1000 (1.4-6.5); NEUT% 72.1 % (42.2-75.2); PLT 435 X1000 (130-400); RBC 4.04 XMIL (4.7-6.1); RDW 12.5 % (11.5-14.5); WBC 10.29 X1000 (4.8-10.8)
[2018-12-30 06:39] LABS: AGAP 10; BUN 20 mg/dL (8-22); CALCIUM 8.7 mg/dL (8.8-10.2); CHLORIDE 102 mmol/L (98-107); COSMO 284; CREATININE 1.2 mg/dL (0.7-1.2); ESTIMATED GFR > 60; GLUCOSE 134 mg/dL (70-104); POTASSIUM 4.6 mmol/L (3.5-5.1); SODIUM 140 mmol/L (136-145); TCO2 29 mmol/L (25-35)
[2018-12-30] MEDS: HUMULIN 70/30 (PARKWAY) SUBQ SCH ×2 (08:06→17:19)
[2018-12-30] MEDS: NORVASC PO SCH (08:06)
[2018-12-30] MEDS ORDERED: NS 250 ML ONE (13:28)
--- NOTE | 2018-12-30 13:48 | GENERAL SURGERY PROGRESS NOTE ---
DATE: 12/30/2018 SUBJECTIVE: Patient seems to be doing okay. OBJECTIVE: Vital Signs: Patient is currently afebrile. His vital signs stable. General Exam: No acute distress. HEENT: Normocephalic, atraumatic. Pupils equal, round, reactive to light. Mucous membranes moist. Oropharynx benign. Neck: Supple. Trachea midline. Cardiovascular: Regular rate and rhythm. Lungs: Grossly clear. Abdomen: Soft, nontender, nondistended. Extremities: Left foot and left great toe appears to be about the same, overall improved. Vascular: All extremities perfused. Neurologic: Grossly intact. Skin: As noted above. LABORATORY: White blood cell count is 10, hematocrit 32. Remainder of labs reviewed. ASSESSMENT AND PLAN: This is a 53-year-old gentleman with diabetic foot ulcer, left great toe. Diabetic foot ulcer. At this time seems to be healing. He has got good enough perfusion to get it to heal. Additionally, there is some debate about him not wanting a PICC line for IV antibiotics but I do think that would be the best move for him. We will continue current treatment. cc: Maxx Santoyo MD
[2018-12-30 17:03] VITALS: BP 116/68
[2018-12-30] MEDS: VANCOMYCIN 1,600 MG in NS 250 ML IV SCH (17:50)
--- NOTE | 2018-12-31 08:30 | DISCHARGE SUMMARY ---
ADMISSION DATE: 12/24/2018 DISCHARGE DATE: 12/30/2018 PRIMARY CARE PROVIDER: Ulises Rasmussen. PERTINENT PROCEDURES: Foot x-ray, soft tissue swelling of the great toe. Erosive changes at the terminal tuft of the distal phalanges of 2nd and 3rd toes which are nonspecific age. Lower extremity MRI with generalized bone marrow edema in the plantar phalanx of the great toe. Mild generalized bone marrow edema in the proximal phalanx of the great toe. No discrete erosion. Early osteomyelitis of the great toe, particular at the distal phalanx could not be excluded. CONSULTATIONS: Dr. Maxx Santoyo with General Surgery. DISCHARGE DIAGNOSES: 1. Diabetic foot ulcer of the left great toe with early osteomyelitis. The patient has been improving with IV antibiotics. Mr. Vegas was very hesitant to receive a PICC line and go home on IV antibiotics secondary to needing to go back to work. He wanted to discuss options with the general surgeon as well as hospitalist. His options were to go home on p.o. antibiotics and possibly lose his toe and eventually even his foot. I spoke with Dr. Balaji Fuentes. His recommendation was IV vancomycin for 8 weeks. The patient has committed to doing 2 weeks of IV antibiotics and a followup with Dr. Fuentes for further recommendation and treatment. He has received his PICC line today. He has been set up with [facility] to provide his antibiotics. 2. Acute kidney injury, resolved. 3. Diabetes mellitus. Continue home regimen and diabetic diet. 4. Hypertension. Continue home medications. 5. Anemia of chronic disease, stable. HOSPITAL COURSE: Briefly, Mr. Vegas is a 53-year-old male who carries a past medical history of diabetes, Clayton syndrome, hypertension and cellulitis noticed a week prior. He had a sore on the bottom of his left great toe that progressively worsen. In the ED, imaging suggested the possibility of early osteomyelitis. Wound Care and General Surgery were consulted for daily wound dressings. He was initiated on IV antibiotics. We did discuss with him after we talked to Dr. Fuentes that he would need long-term antibiotics with vancomycin. He was very hesitant to get a PICC line or to commit to 8 weeks of IV antibiotics. After speaking with Dr. Santoyo as well as Hospitalist Service, the patient has agreed to do 2 weeks of IV antibiotics and follow up with Dr. Fuentes in his office to continue either on antibiotics or p.o. However, we did try to explain to him the risk of him losing his toe or even the possibility of his foot for not continuing on IV antibiotics for longer. He states he understands but that he has to go back to work, so he will be discharged home today with [facility]. VITAL SIGNS: At time of discharge, temperature is 97.9, heart rate 67, respirations 18, blood pressure 153/84, O2 saturation is 99% on room air. DISCHARGE DIET: Diabetic. DISCHARGE MEDICATIONS: 1. Vancomycin 1600 mg IV q.24 hours. He should have a vancomycin level drawn on Thursday and sent to Dr. Balaji Fuentes. 2. Norvasc 10 mg p.o. daily. 3. Humulin 70/30 eighteen units subcutaneously b.i.d. 4. Phenergan 25 mg tablets 1 to 2 p.o. q.6 hours p.r.n. FOLLOWUP: Mr. Vegas is being discharged home with a PICC line and home health with IV antibiotics. He is to follow up with Dr. Balaji Fuentes on 01/10/2019 at 10:15 a.m. as well as his primary care provider, Dr. Ulises Rasmussen, in the next 1 to 2 weeks. He can return to the ED or call 911 for any worsening of symptoms. Dictated by NAVDEEP Beckman for Adan Faustin MD cc: MD Balaji Baker MD Joel A. Powell, MD
--- NOTE | 2018-12-31 20:56 | DISCHARGE SUMMARY ---
ADMISSION DATE: 12/24/2018 DISCHARGE DATE: 12/30/2018 ADDENDUM: Patient seen and examined by myself. Full note dictated and discussed with nurse practitioner on discharge. The patient was noted to have methicillin-resistant Staphylococcus aureus cellulitis of his left great toe. An MRI demonstrated a probable early osteomyelitis. The patient thankfully had an uneventful hospital course. He was placed on vancomycin. A PICC line was placed. Oddly enough, Mr. Vegas initially declined taking IV antibiotics. He wanted to know his other options. Discussed with him that certainly worsening infection, amputation and possible could be an option, but he should certainly choose the option of IV antibiotics in an attempt to save his toe and foot. We have at least convinced him for a couple of weeks of antibiotics. He will be discharged home with such. cc: Adan Faustin MD
--- NOTE | 2019-01-02 15:24 | VASCULAR LAB ---
DATE: 12/25/2018 PROCEDURE: Lower extremity arterial study. REFERRING PHYSICIAN: Maxx Santoyo MD. INTERPRETING PHYSICIAN: Oli Lucas MD. ROAD COMMISSIONER: Raulito. INDICATION: The patient has ulcers on the left great toe. FINDINGS: Brachial pressure 133. Right AB index 1.43. Right great toe pressure 134 for a right total brachial index of 1.01. The left ankle brachial index is 1.42. The PVRs appear normal. The PPGs at the toe level appear normal. INTERPRETATION: Normal resting lower extremity arterial study. cc: MD Maxx Jacobs MD
== END 2018-12-30 19:45 | disposition home health service (06) | DRG 638 ==
LOC: P.ED 20:54 → P.MEDSURG 12-24 01:19 → SUATTDRO 12-24 01:19
PROVIDERS: ATTEND Family Medicine